=== PATIENT | male | born 1945 | race Caucasian/White ===

== ENCOUNTER 2020-09-09 07:24 | Day surgery (SDC) | payer MEDICARE, OTHER, SELFPAY ==
--- NOTE | 2020-09-08 08:08 | P.CONAN_ITS ---
Documented by User: Gracia Duarte 09/08/20 08:09 HPI - Anesthesia Eval Consult details Narrative: 75yo M for Upper Endoscopy and Colonoscopy [facility] Past Medical History Medical History Elevated cholesterol GERD (gastroesophageal reflux disease) History of Gutierrez's esophagus HTN (hypertension) Surgical History Surgical History H/O colonoscopy History of esophagogastroduodenoscopy (EGD) Social History Social History Smoking Status: Former smoker Use of substances other than those prescribed or required for medical reasons: No Advance Directives: No Advance Directives Information Provided: Yes Meds Allergies Allergy/AdvReac Type Severity Reaction Status Date / Time No Known Allergies Allergy Verified 09/09/20 07:54 Home Medications Medication Instructions Recorded Confirmed Last Taken Type amlodipine 1 tab PO DAILY 09/04/20 09/04/20 09/09/20 History omeprazole 1 cap PO DAILY 09/04/20 09/04/20 Unknown History pravastatin 1 tab PO DAILY 09/04/20 09/04/20 Unknown History Exam Exam Date and Time: September 08, 2020 0808 Assessment and Plan Assessment Anesthesia Assessment: Chart Reviewed Documented by User: Star Su 09/09/20 09:29 [facility] Past Medical History Medical History Elevated cholesterol GERD (gastroesophageal reflux disease) History of Gutierrez's esophagus HTN (hypertension) Surgical History Surgical History H/O colonoscopy History of esophagogastroduodenoscopy (EGD) Social History Social History Smoking Status: Former smoker Use of substances other than those prescribed or required for medical reasons: No Advance Directives: No Advance Directives Information Provided: Yes Meds Allergies Allergy/AdvReac Type Severity Reaction Status Date / Time No Known Allergies Allergy Verified 09/09/20 07:54 Home Medications Medication Instructions Recorded Confirmed Last Taken Type amlodipine 1 tab PO DAILY 09/04/20 09/04/20 09/09/20 History omeprazole 1 cap PO DAILY 09/04/20 09/04/20 Unknown History pravastatin 1 tab PO DAILY 09/04/20 09/04/20 Unknown History Exam Airway Mallampati Class: II TM Dist: >3cm Neck ROM: Full Loose/Missing/Broken Teeth: Yes (multiple missing, poor dentition) Heart: [id number] Lungs: cta b/l Assessment and Plan Assessment Anesthesia Assessment: Anesthesia Plan Discussed, PAT Visit and Chart Reviewed Final Anesthetic Review NPO: Yes ASA Class: III Final Preanesthetic Review: No Changes in Pt Med Stat, Meds/Allgs Chart Reviewed, Consent Obtained/Reviewed and Anes Risks/Benef Reviewed Patient Risk: Intermediate Procedure Risk: Low Assessment/Block/Sedation in SS: Assess/Block/Sedation-SS Anesthetic Plan Anesthetic Plan: MAC: and Agree w/ Assess. and Plan Disposition: Standard PACU
[2020-09-09 08:00] VITALS: BP 138/75; PULSE 96; RESP 16; TEMP 36.3; O2SAT 96; BMI 24.8
--- NOTE | 2020-09-09 09:29 | P.HPSUR_ITS ---
Pre-Procedural Eval Section B Chief Complaint: austin's,screening Details of Present Illness: see H&P no changes Relevant Family History (Specify if Yes): No Relevant Social History: None Present Medications: see Short Stay Collaborative assessment Medical History: No relevant PMH History of Previous Operations: Relevant previous surgery/procedure and date(s) Allergies: Allergies Allergy/AdvReac Type Severity Reaction Status Date / Time No Known Allergies Allergy Verified 09/09/20 07:54 Review of Systems Sugical H&P ROS: Negative: Constitution, Cardiovascular, Respiratory, Neurological, Psychiatric, Hem-Onc, Allergic/Immunologic, Gastrointestinal, Ge nitourinary, Musculoskeletal, Integumentary, Endocrine and Eyes/Ears/Nose/Throat Exam Surgical H&P Exam: Normal: HEENT, Normal: Heart, Normal: Lungs, Normal: Extremities, Normal: Abdomen, Normal: Skin and Normal: Neurological Plan Diagnosis/Plan: Unchanged I have reviewed the history and physical and performed a pertinent physical examination on my patient. No changes have occurred unless specified.
[2020-09-09 10:23] VITALS: BP 102/59; PULSE 79; RESP 16; TEMP 36.3; O2SAT 98
--- NOTE | 2020-09-09 10:25 | PM.OP ---
Brief Operative Note Date of Service: 09/09/20 Pre-op diagnosis: barretts,screening Post-op diagnosis: same Procedure: egd, colon Surgeon: Jameson Boss Anesthesia: MAC Estimated blood loss (mL): 5 Pathology: other (bxs gastric polyp, egj, 36cm, multiple colonic polyps) Condition: stable Disposition: PACU
[2020-09-09 10:38] VITALS: BP 106/61; PULSE 90; RESP 16; O2SAT 98
[2020-09-09 10:48] VITALS: BP 137/76; PULSE 87; RESP 16; TEMP 36.3; O2SAT 96
--- NOTE | 2020-09-09 10:57 | OP_ITS ---
SURGEON: Jameson Boss MD INDICATIONS: 1. Gutierrez's esophagus. 2. Colon cancer screening. PREOPERATIVE DIAGNOSIS: POSTOPERATIVE DIAGNOSIS: PROCEDURE PERFORMED: Upper endoscopy with biopsy, colonoscopy to the terminal ileum with biopsy and snare polypectomy. ESTIMATED BLOOD LOSS: COMPLICATIONS: ANESTHESIA: ASSISTANTS: SPECIMENS: MEDICATIONS: Monitored anesthesia care. DESCRIPTION OF PROCEDURE: History and physical performed. The risks and benefits of the procedure were explained to the patient, and informed consent was obtained. The patient was placed in the left lateral decubitus position. The Olympus video gastroscope was introduced into the esophagus, stomach, and duodenum. Examination was performed. The scope was removed. He was repositioned for colonoscopy. A digital rectal exam was performed and was found to be normal. The Olympus pediatric video colonoscope was introduced into the rectum and advanced to the cecum without difficulty. The cecum was identified by transillumination, palpation, and identification of the ileocecal valve. Examination was performed and the scope was removed. He tolerated both procedures well and was returned to recovery in stable condition. FINDINGS: Upper endoscopy: ESOPHAGUS: The esophagus showed a 2 cm area of Gutierrez's esophagus with no raised lesions or ulcerated areas. Biopsies were obtained in all 4 quadrants from the EG junction and 36 cm. STOMACH: There was a small 2 cm hiatal hernia. On the lateral aspect of the hiatal hernia was an inflamed 8 mm polyp. This was biopsied. The remainder of the stomach was normal. DUODENUM: The bulb and second portion were normal. COLONOSCOPY: The terminal ileum was examined and appeared normal. There were multiple colonic polyps which were removed using a combination of snare and biopsy. The first was located in the cecum. Three polyps were located at 65 cm; single polyps were located at 40cm, 30cm, and in the rectum. There was mild sigmoid diverticulosis. Retroflexed examination showed internal hemorrhoids. All polyps were less than 10 mm. IMPRESSION: 1. Gutierrez's esophagus. 2. Colon polyps. RECOMMENDATION: Follow up the biopsy results. MD RITO Horne/RAGHU / [id number] MTDD
== END 2020-09-09 11:14 | disposition home or self-care (01) ==
PROVIDERS: PCP Nurse Practitioner Family; Visit Provider Internal Medicine Gastroenterology
PROC: (CPT 45385; principal; 2020-09-09 09:10)
DX: Z12.11 Encounter for screening for malignant neoplasm of colon (principal); D12.0 Benign neoplasm of cecum; D12.4 Benign neoplasm of descending colon; D12.5 Benign neoplasm of sigmoid colon; K62.1 Rectal polyp; K22.70 Barrett's esophagus without dysplasia; K44.9 Diaphragmatic hernia without obstruction or gangrene; K31.7 Polyp of stomach and duodenum; I10 Essential (primary) hypertension; K21.9 Gastro-esophageal reflux disease without esophagitis; Z79.899 Other long term (current) drug therapy; Z87.891 Personal history of nicotine dependence
CPT/HCPCS: 45385; 45380; 43239; 88305; 88342